=== PATIENT | female | born 1960 | race African-American/Black ===

== ENCOUNTER 2021-11-16 10:06 | Emergency (ER) | payer OTHER ==
--- OUTSIDE RECORDS SUMMARY | 2021-11-16 10:13 | XMS REPORT | Continuity of Care Document ---
:1960 Author Organization [facility] t Address [address] [place] [address] Care Team Providers Name Role Phone Yomaira Victor Primary Care Physician Nilam Attending Clinician Unavailable Nilam Attending Clinician Unavailable ELADIA, K.H. Attending Clinician Unavailable Yomaira Victor Attending Clinician Yomaira KHAN Attending Clinician Unavailable Eladia ARANGO, K.H. Attending Clinician Doctor Unassigned, Name Attending Clinician Unavailable Problems Condition Condition Condition Status Onset Resolution Last Treating Co mments Source Name Details Category Date Date Treatment Clinician Date Elevated Elevated Disease Active Unive rs blood blood 4- ity of pressure pressure 00:00: [place] reading reading 00 Medical without without Branch diagnosis diagnosis of of hypertensi hypertensi on on BMI BMI Disease Active Univers 28.0-28.9, 28.0-28.9, 4-09 it y of adult adult 00:00: [address] Well woman Well woman Disease Active U nivers exam exam 7-27 ity of 00:00: [place] 00 Medical Branch Surgical Surgical Disease Active Unive rs menopause menopause 2-15 ity of 00:00: [place] 00 Medical Branch H/O total H/O total Disease Active Overview: Univers hysterecto hysterecto 2-15 Cervix it y of my with my with 00:00: removed [place] removal of removal of 00 Me dical both tubes both tubes Br anch and and ovaries ovaries Obesity Obesity Disease Active Overview: Univ ers 2-15 Formattin ity of 00:00: g of this [place] 00 note Medical might be Branch different from the original. 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 III) 00 [facility] namita Branch FH: breast FH: breast Disease Active U nivers cancer in cancer in 1-13 ity of first first 00:00: [place] degree degree 00 Medical relative relative Branch HSIL (high HSIL (high Disease Resolve 2014-08-17 2014-08-18 Univers grade grade d 1-21 00:00:00 00:14:19 ity of squamous squamous 00:00: [place] intraepith intraepith 00 Me dical elial elial Branch lesion) on lesion) on Pap smear Pap smear of cervix of cervix Positive Positive Disease Resolve 2014-08-17 2014-08-18 Univers HPV 2014 HPV 2014 d 1-17 00:00:00 00:14:54 it y of 00:00: [place] 00 Medical Branch History of History of Disease Resolve 2014-08-17 2015-04-04 Univers anemia of anemia of d 1-13 00:00:00 00:03:19 ity of chronic chronic 00:00: [place] disease disease 00 Medical Branch Hx of Hx of Disease Resolve 2013-08-14 2013-08-14 Univers abnormal abnormal d 07-15 00:00:00 21:57:22 it y of Pap smear Pap smear 00:[place] Encounter Encounter Disease Resolve 2013-08-14 2015-04-04 Univers for for d 07-15 00:00:00 00:03:22 ity of routine routine 00:00: [place] gynecologi gynecologi 00 Me dical [facility] Branch examinatio examinatio n n Allergies, Adverse Reactions, Alerts Allergy Allergy Status Severity Reaction(s) Onset Inactive Treating Comm ents Source Name Type Date Date Clinician IODINE DRUG Active Rash Univers INGREDI 07-15 ity of 00:00: [place] 00 [facility] Iodine Propensi Active Rash Pt states Unive rs ty to 07-15 allergic ity of adverse 00:00: to the [place] reaction 00 dye that Medica l s is given Branch for CAT scans Social History Social Habit Start Date Stop Date Quantity Comments Source History of Cigarette Smoker Universi ty of tobacco use [facility] Exposure to Not sure [facility] SARS-CoV-2 [facility] (event) [place] Tobacco use and 2020-11-17 2020-11-17 Never used Universit y of exposure 00:00:00 00:00:00 [facility] Alcohol intake 2020-11-17 2020-11-17 Current University of 00:00:00 00:00:00 non-drinker of [facility] alcohol (finding) Branch Tobacco Comment 2017-01-26 2017-01-26 half a pack/ per Uni versity of 00:00:00 00:00:00 day ( on and off [facility] ) Branch Sex [birth year] At [birth year] Universit y of 00:00:00 00:00:00 [facility] Smoking Status Start Date Stop Date Source Current every day 2020-11-17 00:00:00 [facility] smoker Medical Branch Former smoker 2019-07-05 00:00:00 2019-07-05 00:00:00 Universi ty of [facility] Medications Ordered Filled Start Stop Current Ordering Indication Dosage Frequency Signature Comments Components Source Medication Medication Date Date Medication? Clinician (SIG) Name Name pravastatin 2020- No Take by U nivers 20 mg 5-18 05-18 mouth at ity of tablet 20:44: 00:00 bedtime. [place] 32 :00 Medical Branch pravastatin 2020- No Take by U nivers 20 mg 5-18 05-18 mouth at ity of tablet 20:44: 00:00 bedtime. [place] 32 :00 Medical Branch MULTIVIT-IL 2020- No Take by U nivers NERALS/FERR 5-18 05-18 mouth. ity o f OUS FUM 19:46: 00:00 [place] (MULTI 30 :00 Medical VITAMIN Branch ORAL) MULTIVIT-IL 2020- No Take by U nivers NERALS/FERR 5-18 05-18 mouth. ity o f OUS FUM 19:46: 00:00 [place] (MULTI 30 :00 Medical VITAMIN Branch ORAL) DOCOSAHEXAN 2020- No Take by U nivers OIC 5-18 05-18 mouth. ity of ACID/EPA 19:46: 00:00 [place] (FISH OIL 23 :00 Medical ORAL) Branch DOCOSAHEXAN 2020- No Take by U nivers OIC 5-18 05-18 mouth. ity of ACID/EPA 19:46: 00:00 [place] (FISH OIL 23 :00 Medical ORAL) Branch pravastatin Yes Take by Un rebekah 20 mg 4-09 mouth at ity of tablet 15:46: bedtime. [address] pravastatin 0 Yes Take by Un rebekah 20 mg 4-09 mouth at ity of tablet 15:46: bedtime. [address] pravastatin 0 Yes Take by Un rebekah 20 mg 4-09 mouth at ity of tablet 15:46: bedtime. [address] pravastatin 0 Yes Take by Un rebekah 20 mg 4-09 mouth at ity of tablet 15:46: bedtime. [address] pravastatin 0 Yes Take by Un rebekah 20 mg 4-09 mouth at ity of tablet 15:46: bedtime. [address] pravastatin 0 Yes Take by Un rebekah 20 mg 4-09 mouth at ity of tablet 15:46: bedtime. [address] pravastatin 2020-0 Yes Take by Un rebekah 20 mg 4-09 mouth at ity of tablet 15:46: bedtime. [address] pravastatin 2020-0 Yes Take by Un rebekah 20 mg 4-09 mouth at ity of tablet 15:46: bedtime. [address] pravastatin 2020-0 Yes Take by Un rebekah 20 mg 4-09 mouth at ity of tablet 15:46: bedtime. [address] pravastatin 2020-0 Yes Take by Un rebekah 20 mg 4-09 mouth at ity of tablet 15:46: bedtime. [address] pravastatin 2020-0 Yes Take by Un rebekah 20 mg 4-09 mouth at ity of tablet 15:46: bedtime. [address] 2018-07 Yes Take by Un rebekah NERALS/FERR 1-11 mouth. ity of OUS FUM 22:11: [place] ([facility] 26 Medical VITAMIN Branch ORAL) DOCOSAHEXAN 2018-07 Yes Take by Un rebekah OIC 1-11 mouth. ity of ACID/EPA 22:11: [place] (FISH OIL 26 Medical ORAL) [facility] 2018-07 Yes Take by Un rebekah NERALS/FERR 1-11 mouth. ity of OUS FUM 22:11: [place] ([facility] 26 Medical VITAMIN Branch ORAL) DOCOSAHEXAN 2018-07 Yes Take by Un rebekah OIC 1-11 mouth. ity of ACID/EPA 22:11: [place] (FISH OIL 26 Medical ORAL) [facility] 2018-07 Yes Take by Un rebekah NERALS/FERR 1-11 mouth. ity of OUS FUM 22:11: [place] (MULTI 26 Medical VITAMIN Branch ORAL) DOCOSAHEXAN 2018- Yes Take by Un rebekah OIC 1-11 mouth. ity of ACID/EPA 22:11: [place] (FISH OIL 26 Medical ORAL) [facility] 2018-07 Yes Take by Un rebekah NERALS/FERR 1-11 mouth. ity of OUS FUM 22:11: [place] ([facility] 26 Medical VITAMIN Branch ORAL) DOCOSAHEXAN 2018-07 Yes Take by Un rebekah OIC 1-11 mouth. ity of ACID/EPA 22:11: [place] (FISH OIL 26 Medical ORAL) [facility] 2018-07 Yes Take by Un rebekah NERALS/FERR 1-11 mouth. ity of OUS FUM 22:11: [place] (MULTI 26 Medical VITAMIN Branch ORAL) DOCOSAHEXAN 2018-07 Yes Take by Un rebekah OIC 1-11 mouth. ity of ACID/EPA 22:11: [place] (FISH OIL 26 Medical ORAL) [facility] 2018-07 Yes Take by Un rebekah NERALS/FERR 1-11 mouth. ity of OUS FUM 22:11: [place] (MULTI 26 Medical VITAMIN Branch ORAL) DOCOSAHEXAN 2018-07 Yes Take by Un rebekah OIC 1-11 mouth. ity of ACID/EPA 22:11: [place] (FISH OIL 26 Medical ORAL) [place] pravastatin 2018-07 Yes Take by Un rebekah 20 mg 1-11 mouth at ity of tablet 22:11: bedtime. [place] [address] Medical [facility] 2018-07 Yes Take by Un rebekah NERALS/FERR 1-11 mouth. ity of OUS FUM 22:11: [place] (MULTI 26 Medical VITAMIN Branch ORAL) DOCOSAHEXAN 2018-07 Yes Take by Un rebekah OIC 1-11 mouth. ity of ACID/EPA 22:11: [place] (FISH OIL 26 Medical ORAL) [facility] 2018-07 Yes Take by Un rebekah NERALS/FERR 1-11 mouth. ity of OUS FUM 22:11: [place] (MULTI 26 Medical VITAMIN Branch ORAL) DOCOSAHEXAN 2018-07 Yes Take by Un rebekah OIC 1-11 mouth. ity of ACID/EPA 22:11: [place] (FISH OIL 26 Medical ORAL) [facility] 2018-07 Yes Take by Un rebekah NERALS/FERR 1-11 mouth. ity of OUS FUM 22:11: [place] (MULTI 26 Medical VITAMIN Branch ORAL) DOCOSAHEXAN 2018-07 Yes Take by Un rebekah OIC 1-11 mouth. ity of ACID/EPA 22:11: [place] (FISH OIL 26 Medical ORAL) [facility] 2018-07 Yes Take by Un rebekah NERALS/FERR 1-11 mouth. ity of OUS FUM 22:11: [place] (MULTI 26 Medical VITAMIN Branch ORAL) DOCOSAHEXAN 2018-07 Yes Take by Un rebekah OIC 1-11 mouth. ity of ACID/EPA 22:11: [place] (FISH OIL 26 Medical ORAL) Branch MULTIVIT-IL 2018-07 Yes Take by Un rebekah NERALS/FERR 1-11 mouth. ity of OUS FUM 22:11: [place] (MULTI 26 Medical VITAMIN Branch ORAL) DOCOSAHEXAN 2018- Yes Take by Un rebekah OIC 1-11 mouth. ity of ACID/EPA 22:11: [place] (FISH OIL 26 Medical ORAL) Branch MULTIVIT-IL 2018-07 Yes Take by Un rebekah NERALS/FERR 1-11 mouth. ity of OUS FUM 22:11: [place] (MULTI 26 Medical VITAMIN Branch ORAL) DOCOSAHEXAN 2018- Yes Take by Un rebekah OIC 1-11 mouth. ity of ACID/EPA 22:11: [place] (FISH OIL 26 Medical ORAL) [place] No known No [facility] No known No Univers medications ity [facility] No known No [facility] known No [facility] Immunizations Ordered Filled Immunization Date Status Comments Sour e Immunization Name Name Td 2009-05-15 Completed University of 00:00:00 [facility] Td 2009-05-15 Completed University of 00:00:00 [facility] Td 2009-05-15 Completed University of 00:00:00 [facility] Td 2009-05-15 Completed University of 00:00:00 [facility] Td 2009-05-15 Completed University of 00:00:00 [facility] Td 2009-05-15 Completed University of 00:00:00 [facility] Td 2009-05-15 Completed University of 00:00:00 [facility] Td 2009-05-15 Completed University of 00:00:00 [facility] Td 2009-05-15 Completed University of 00:00:00 [facility] Td 2009-05-15 Completed University of 00:00:00 [facility] Td 2009-05-15 Completed University of 00:00:00 [facility] Td 2009-05-15 Completed University of 00:00:00 [facility] Td 2009-05-15 Completed University of 00:00:00 [facility] Td 2009-05-15 Completed University of 00:00:00 [facility] Td 2009-05-15 Completed University of 00:00:00 [facility] Td 2009-05-15 Completed University of 00:00:00 [facility] Td 2009-05-15 Completed University of 00:00:00 [facility] Td 2009-05-15 Completed University of 00:00:00 [facility] Vital Signs Vital Name Observation Time Observation Value Comments Source Systolic blood 2020-11-17 19:45:00 114 mm[Hg] Univer sity of pressure [facility] Diastolic blood 2020-11-17 19:45:00 79 mm[Hg] Unive rsity of [facility] Heart rate 2020-11-17 19:45:00 83 /min Universi ty of [facility] Respiratory rate 2020-11-17 19:45:00 19 /min [facility] [place] [place] [facility] Body height 2020-11-17 19:45:00 160 cm Universi ty of [facility] Body weight 2020-11-17 19:45:00 72.122 kg Universi ty [facility] BMI 2020-11-17 19:45:00 28.17 kg/m2 Universi ty [facility] Oxygen saturation in 2020-11-17 19:45:00 93 /min [facility] Arterial blood by [facility] Pulse oximetry Branch Systolic blood 2020-10-09 15:32:00 144 mm[Hg] Univer sity of [facility] Diastolic blood 2020-10-09 15:32:00 90 mm[Hg] Unive rsity of [facility] Heart rate 2020-10-09 15:31:00 68 /min Universi ty [facility] Body temperature 2020-10-09 15:31:[address] [facility] [place] [place] [facility] Respiratory rate 2020-10-09 15:31:00 16 /min [facility] [place] [facility] Body height 2020-10-09 15:31:00 160 cm Universi ty of [facility] Body weight 2020-10-09 15:31:00 72.53 kg Universi ty [facility] BMI 2020-10-09 15:31:00 28.33 kg/m2 Universi ty [facility] Procedures Procedure Date / Time Performing Clinician Source Performed BI ULTRASOUND BREAST 2020-12-11 14:41:20 Kendall Khan [facility] Branch BI DIAGNOSTIC 2020-12-11 14:08:00 Kendall Khan [facility] TOMOSYNTHESIS LEFT Medical Bran h BCCS-RELATED 2020-11-11 05:01:00 Doctor Unassigned, No [facility] [place] DOCUMENTATION Name Medical Branch REFERRAL- 2020-10-21 05:01:00 Doctor Unassigned, No [facility] [place] REQUEST/RESPONSE Name Medical Branch CONSENT/REFUSAL FOR 2020-10-09 14:58:26 Doctor Unassigned, No Un iversity of [place] DIAGNOSIS AND TREATMENT Name Medical Branch Plan of Care Planned Activity Planned Date Details Comments Source Future Scheduled 2021-11-02 Screening for University of Test 00:00:00 malignant neoplasm [place] Med ical of breast Branch (procedure) [code = 867393943] Future Scheduled 2021-11-02 Screening for University of Test 00:00:00 malignant neoplasm [place] Med ical of breast Branch (procedure) [code = 058827923] Future Scheduled 2021-10-09 Depression screening Uni versity of Test 00:00:00 (procedure) [code = [place] Me dical 769088666] Branch Future Scheduled 2021-10-09 Depression screening Uni versity of Test 00:00:00 (procedure) [code = [place] Me dical 249751810] Branch Future Scheduled 2021-03-03 INFLUENZA VACCINE Univer sity of Test 00:00:00 (Season Ended) [code [place] M edical = INFLUENZA VACCINE Branch (Season Ended)] Future Scheduled 2021-03-03 INFLUENZA VACCINE Univer sity of Test 00:00:00 (Season Ended) [code [place] M edical = INFLUENZA VACCINE Branch (Season Ended)] Diagnostic Test 2020-11-05 BI ULTRASOUND BREAST Expected: Univ ersity of Pending 00:00:00 COMPLETE LEFT [code 11/05/2020, [place] Me dical = 00875] Expires: Branch 01/05/2022 Diagnostic Test 2020-11-05 BI DIAGNOSTIC Expected: University of Pending 00:00:00 TOMOSYNTHESIS LEFT 11/05/2020, [place] Med ical [code = 87298] Expires: Branch 01/05/2022 Diagnostic Test 2020-11-05 BI ULTRASOUND BREAST Expected: Univ ersity of Pending 00:00:00 COMPLETE LEFT [code 11/05/2020, [place] Me dical = 88381] Expires: Branch 01/05/2022 Diagnostic Test 2020-11-05 BI DIAGNOSTIC Expected: University of Pending 00:00:00 TOMOSYNTHESIS LEFT 11/05/2020, [place] Med ical [code = 92315] Expires: Branch 01/05/2022 Future Scheduled 2020-01-27 Screening for University of Test 00:00:00 malignant neoplasm [place] Med ical of cervix Branch (procedure) [code = 067519036] Future Scheduled 2020-01-27 Screening for University of Test 00:00:00 malignant neoplasm [place] Med ical of cervix Branch (procedure) [code = 952352563] Future Scheduled 2015 Screening for University of Test 00:00:00 malignant neoplasm [place] Med ical of lung (procedure) Branch [code = 259080332] Future Scheduled 2015 Screening for University of Test 00:00:00 malignant neoplasm [place] Med ical of lung (procedure) Branch [code = 448139225] Future Scheduled 2010 Screening for occult Uni versity of Test 00:00:00 blood in feces [facility] (procedure) [code = Branch 060298601] Future Scheduled 2010 Stool DNA-based Universi ty of Test 00:00:00 colorectal cancer [facility] screening Branch (procedure) [code = 810124870018575] Future Scheduled 2010 Flexible fiberoptic Univ ersity of Test 00:00:00 sigmoidoscopy [facility] (procedure) [code = Branch 30707407] Future Scheduled 2010 Screening for University of Test 00:00:00 malignant neoplasm [place] Med ical of colon (procedure) Branch [code = 976642648] Future Scheduled 2010 Screening for University of Test 00:00:00 malignant neoplasm [place] Med ical of colon (procedure) Branch [code = 164260504] Future Scheduled 2010 Zoster Recombinant Unive rsity of Test 00:00:00 Vaccine (SHINGRIX) [place] Med ical (1 of 2) [code = Branch Zoster Recombinant Vaccine (SHINGRIX) (1 of 2)] Future Scheduled 2010 Screening for occult Uni versity of Test 00:00:00 blood in feces [facility] (procedure) [code = Branch 227408016] Future Scheduled 2010 Stool DNA-based Universi ty of Test 00:00:00 colorectal cancer [facility] screening Branch (procedure) [code = 310691874783380] Future Scheduled 2010 Flexible fiberoptic Univ ersity of Test 00:00:00 sigmoidoscopy [facility] (procedure) [code = Branch 81234523] Future Scheduled 2010 Screening for University of Test 00:00:00 malignant neoplasm [place] Med ical of colon (procedure) Branch [code = 391761855] Future Scheduled 2010 Screening for University of Test 00:00:00 malignant neoplasm [place] Med ical of colon (procedure) Branch [code = 117733212] Future Scheduled 2010 Zoster Recombinant Unive rsity of Test 00:00:00 Vaccine (SHINGRIX) [place] Med ical (1 of 2) [code = Branch Zoster Recombinant Vaccine (SHINGRIX) (1 of 2)] Future Scheduled 1979 DTaP,Tdap,and Td Univers ity of Test 00:00:00 Vaccines (1 - Tdap) [facility] dical [code = Branch DTaP,Tdap,and Td Vaccines (1 - Tdap)] Future Scheduled 1979 DTaP,Tdap,and Td Univers ity of Test 00:00:00 Vaccines (1 - Tdap) [facility] dical [code = Branch DTaP,Tdap,and Td Vaccines (1 - Tdap)] Future Scheduled 1978 Hepatitis C University of Test 00:00:00 screening [place] [facility] (procedure) [code = Branch 130092460] Future Scheduled 1978 Hepatitis C University of Test 00:00:00 screening [facility] (procedure) [code = Branch 450698028] Future Scheduled 1976 SARS-CoV-2 University of Test 00:00:00 (COVID-19) Vaccine [place] ical (1) [code = Branch SARS-CoV-2 (COVID-19) Vaccine (1)] Future Scheduled 1976 SARS-CoV-2 University of Test 00:00:00 (COVID-19) Vaccine [place] [facility] ical (1) [code = Branch SARS-CoV-2 (COVID-19) Vaccine (1)] Future Scheduled 1966 PNEUMOCOCCAL 0-64 Univer sity of Test 00:00:00 YEARS COMBINED [place] [facility] SERIES (1 of 1 - Branch PPSV23) [code = PNEUMOCOCCAL 0-64 YEARS COMBINED SERIES (1 of 1 - PPSV23)] Future Scheduled 1966 PNEUMOCOCCAL 0-64 Univer sity of Test 00:00:00 YEARS COMBINED [place] Medical SERIES (1 of 1 - Branch PPSV23) [code = PNEUMOCOCCAL 0-64 YEARS COMBINED SERIES (1 of 1 - PPSV23)] Encounters Start End Encounter Admission Attending Care Care Encounter Source Date/Time Date/Time Type Type Clinicians Facility Department ID 2021-08-24 Outpatient Demarco, STLMLC STLMLC [id number] Common 15:14:01 Avnee [facility] 2021-08-04 Outpatient Demarco, STLMLC STLMLC [id number] Common 14:02:02 Avnee [facility] 2021-07-28 Outpatient Demarco, STLMLC STLMLC [id number] Common 15:58:01 Avnee [facility] 2021-07-28 Outpatient Demarco, STLMLC STLMLC [id number] Common 14:38:32 Avnee [facility] 2021-07-28 Outpatient STLMLC STLMLC [id number] Common 14:36:48 [facility] 2021-07-28 Outpatient Demarco, STLMLC STLMLC [id number] Common 14:36:27 Terra [facility] 2021-07-28 Outpatient STLMLC STLMLC [id number] Common 14:35:28 [facility] 2021-10-08 2021-10-08 ambulatory STLMLC STLMLC [id number] Common 00:00:00 00:00:00 [facility] 2021-08-18 2021-08-18 ambulatory STLMLC STLMLC [id number] Common 00:00:00 00:00:00 [facility] 2021-08-16 2021-08-16 ambulatory STLMLC STLMLC [id number] Common 00:00:00 00:00:00 [facility] 2021-07-28 2021-07-28 ambulatory STLMLC STLMLC [id number] Common 00:00:00 00:00:00 [facility] 2021-07-23 2021-07-23 ambulatory STLMLC STLMLC [id number] Common 00:00:00 00:00:00 [facility] 2021-07-23 2021-07-23 ambulatory STLMLC STLMLC [id number] Common 00:00:00 00:00:00 [facility] 2021-07-16 2021-07-16 ambulatory STLMLC STLMLC [id number] Common 00:00:00 00:00:00 [facility] 2021-07-16 2021-07-16 ambulatory STLMLC STLMLC [id number] Common 00:00:00 00:00:00 [facility] 2021-05-20 2021-05-20 Outpatient Yomaira MONTILLA [facility] [id number] Univers 09:00:00 09:00:00 SENDIL [id number] ity of [facility] 2020-12-11 2020-12-11 [facility] [id number] Univers 08:11:57 23:59:00 Encounter Roshunda R SPECIALTY [id number] ity [id number] [id number] [address] 2020-12-11 2020-12-11 [facility] [id number] Univers 08:11:40 23:59:00 Encounter Roshunda R SPECIALTY [id number] it[id number] [id number] [address] 2020-12-11 2020-12-11 [id number] Univers 11:30:00 11:30:00 KENDALL [id number] ity o f [facility] 2020-12-11 2020-12-11 Outpatient R [place] [facility] [id number] Univers 00:00:00 00:00:00 KENDALL ity o f [facility] 2020-12-11 2020-12-11 Outpatient R [place] [facility] [id number] Univers 00:00:00 00:00:00 YEHUDAA ity o f [facility] 2020-12-08 2020-12-08 [facility] [id number] Univers 14:00:00 14:00:00 SENDIL [id number] ity [facility] 2020-11-18 2020-11-18 [facility] [id number] Univers 00:00:00 00:00:00 Sendil Christy Pagan [id number] [place]y [id number] [phone] Sc dical leighton [address] [place] [address] 2020-11-17 2020-11-17 [facility] [id number] Univers 14:22:15 16:55:50 Visit Sendarleth Pagan [id number] [place] [id number] [id number] Sc dic[address] 2020-11-17 2020-11-17 [facility] [id number] Univers 14:30:00 14:30:00 SENDIL [id number] ity [facility] 2020-11-17 2020-11-17 [facility]patient [facility] [id number] Univers 14:30:00 14:30:00 SENDIL ity [facility] 2020-11-17 2020-11-17 [facility] [id number] Univers 00:00:00 00:00:00 (Out) Sendil Christy Pagan [id number] ity of [id number] [phone] Sc dicct nal [address] [place] [address] 2020-11-11 2020-11-11 Orders Doctor DINAH [id number] Univers 00:00:00 00:00:00 Only Unassigned, DANETTE [id number] ity of [facility] [id number] Andrey as [phone] [address] 2020-11-05 2020-11-05 Telephone [facility] [id number] Univers 00:00:00 00:00:00 Kendall Burnette METAL FILER [id number] ity of REGIONAL [id number] Andrey as MATERNAL [phone] Med ical & CHILD [address] [place] [address] 2020-11-02 2020-11-02 [facility] [id number] Univers 06:53:24 23:59:00 Encounter Kendall Burnette SPECIALTY [id number] [id number] [phone] [place] [id number] [facility] 2020-11-02 2020-11-02 [facility]patient [facility] [id number] Univers 10:00:00 10:00:00 KENDALL [id number] henry o [facility] 2020-11-02 2020-11-02 Outpatient [facility] [id number] Univers 00:00:00 00:00:00 KENDALL figueroa o [facility] 2020-10-21 2020-10-21 Orders Doctor DINAH [id number] Univers 00:00:00 00:00:00 Only Unassigned, DANETTE [id number] ity of [facility] [id number] Andrey as [phone] [address] 2020-10-14 2020-10-14 [facility]patient [facility] [id number] Univers 09:40:00 09:40:00 KENDALL [id number] ity o [facility] 2020-10-09 2020-10-09 Office [facility] [id number] Univers 10:17:45 11:21:59 Visit Kendall Burnette METAL FILER [id number] ity of [id number] Andrey as MATERNAL [phone] [facility] ica & [address] 2020-10-09 2020-10-09 Outpatient [facility] [id number] Univers 10:00:00 10:00:00 KENDALL [id number] ity o [facility] 2020-10-09 2020-10-09 Outpatient [facility] [id number] Univers 09:30:00 09:30:00 KAINREBECCA horner [facility] 2020-10-09 2020-10-09 Orders Doctor DINAH [id number] Univers 00:00:00 00:00:00 Only Unassigned, DANETTE [id number] ity of [facility] [place] [id number] Andrey as [phone] [address] 2019-07-05 2019-07-05 Outpatient [facility] [id number] Univers 06:35:38 23:59:00 YEHUDABarrington alinakristin siri [facility] Results Test Description Test Time Test Comments Results Result [facility] e Comments BI ULTRASOUND 2020-12-01 Examination:BI Univers ity of BREAST COMPLETE 1 DIAGNOSTIC [facility] LEFT 14:52:49 TOMOSYNTHESIS [place] LEFTBI ULTRASOUND BREAST COMPLETE LEFT History:Patient is 60 year old and is seen for: ?Call back. Computer-aided detection (CAD) utilized. Comparisons: 11/02/2020 BI SCREENING TOMOSYNTHESIS BILATERAL, 08/01/2019 BI DIAGNOSTIC TOMOSYNTHESIS LEFT, 07/05/2019 BI SCREENING TOMOSYNTHESIS BILATERAL, 03/15/2017 DIGITAL MAMMOGRAM SCREENING [place], 01/18/2016 DIGITAL MAMMOGRAM SCREENING [place], 08/06/2013 DIGITAL MAMMOGRAM, SCREENING, and 03/03/2010 DIGITAL MAMMOGRAM, SCREENING Findings:BI DIAGNOSTIC TOMOSYNTHESIS LEFTThe left breast has scattered areas of fibroglandular density. There is no evidence of suspicious masses, calcifications, or other abnormal findings in the left breast. The mammographic asymmetry noted at recent screening mammography did not persist with additional imaging and is consistent with superimposition of normal breast tissue. BI ULTRASOUND BREAST COMPLETE LEFTSurvey ultrasound was performed.There is no evidence of suspicious masses or other abnormal findings in the left breast.Ultrasound of the axilla demonstrates morphologically normal lymph nodes. Impression:No evidence of malignancy. Recommendation:Mable warren mammographic follow-up - Left BI-RADS Category: Left 2 - Benign BI DIAGNOSTIC 2020-12-01 Examination:BI Univers ity of TOMOSYNTHESIS LEFT 1 DIAGNOSTIC [facility] 14:52:44 TOMOSYNTHESIS [place] LEFTBI ULTRASOUND BREAST COMPLETE LEFT History:Patient is 60 year old and is seen for: ?Call back. Computer-aided detection (CAD) utilized. Comparisons: 11/02/2020 BI SCREENING TOMOSYNTHESIS BILATERAL, 08/01/2019 BI DIAGNOSTIC TOMOSYNTHESIS LEFT, 07/05/2019 BI SCREENING TOMOSYNTHESIS BILATERAL, 03/15/2017 DIGITAL MAMMOGRAM SCREENING VAN, 01/18/2016 DIGITAL MAMMOGRAM SCREENING VAN, 08/06/2013 DIGITAL MAMMOGRAM, SCREENING, and 03/03/2010 DIGITAL MAMMOGRAM, SCREENING Findings:BI DIAGNOSTIC TOMOSYNTHESIS LEFTThe left breast has scattered areas of fibroglandular density. There is no evidence of suspicious masses, calcifications, or other abnormal findings in the left breast. The mammographic asymmetry noted at recent screening mammography did not persist with additional imaging and is consistent with superimposition of normal breast tissue. BI ULTRASOUND BREAST COMPLETE LEFTSurvey ultrasound was performed.There is no evidence of suspicious masses or other abnormal findings in the left breast.Ultrasound of the axilla demonstrates morphologically normal lymph nodes. Impression:No evidence of malignancy. Recommendation:Mable warren mammographic follow-up - Left BI-RADS Category: Left 2 - Benign
[2021-11-16 10:54] LABS: Absolute Lymphocytes (CBC) 2.1 K/uL (0.7-4.9); Hematocrit 37.8 % (36.0-45.0); MPV 9.8 fL (7.6-11.3)
[2021-11-16 11:11] LABS: Potassium 3.5 mmol/L (3.5-5.1); Troponin High Sensitivity 3.8 pg/mL (<58.9)
[2021-11-16] MEDS ORDERED: ONDANSETRON 4 MG/2 ML VIAL ONE (11:14)
[2021-11-16] MEDS ORDERED: MORPHINE 4 MG/ML SYR ONE (11:14)
--- NOTE | 2021-11-16 11:28 | RAD REPORT ---
EXAM DESCRIPTION: RAD - Chest Single View - 11/16/2021 10:55 am CLINICAL HISTORY: CHEST PAINradiating to the left shoulder COMPARISON: Portable August 2013 TECHNIQUE: AP portable chest image was obtained 11/16/2021 10:55 am . FINDINGS: No focal mass or infiltrate in the lung caro. No significant interstitial infiltrate or edema seen. Under penetrated technique and more shallow inspiration accentuates the interstitial messi bina. Heart and vasculature are normal. No measurable pleural effusion and no pneumothorax. No acute bony abnormality seen. No acute aortic findings suspected. IMPRESSION: No acute cardiopulmonary process. No significant change from comparison study.
[2021-11-16] MEDS ORDERED: KETOROLAC 30 MG/ML INJ ONE (14:36)
--- NOTE | 2021-11-16 15:34 | EDPHYS ---
Physician Documentation [facility] Name: Leela Olivier Age: 61 yrs Sex: Female : 1960 Arrival Date: 11/16/2021 Time: 10:09 Bed 9 Private MD: ED Physician Meng Morris HPI: 11/16 10:22 This 61 yrs old Black Female presents to ER via Ambulatory with complaints of Chest pm1 Pain. 10:22 The patient or guardian reports chest pain that is located primarily in the anterior pm1 aspect of left upper chest. Onset: last night. The pain does not radiate. Associated signs and symptoms: Pertinent positives: headache, Pertinent negatives: shortness of breath. The chest pain is described as sharp. Duration: The patient or guardian reports a single episode, that is still ongoing. Modifying factors: the symptoms are aggravated by cough, deep breath, palpation of area, Lying on left shoulder. Severity of pain: in the emergency department the pain is unchanged. The patient has not experienced similar symptoms in the past. The patient has not recently seen a physician. Historical: - Allergies: 10:15 Iodine; ww - PMHx: 10:15 Hypercholesterolemia; ww - PSHx: 10:15 Total abdominal hysterectomy; ww - Immunization history:: Adult Immunizations up to date. - Social history:: Smoking status: Patient reports the use of cigarette tobacco products, smokes one-half pack cigarettes per day. ROS: 10:22 Constitutional: Negative for fever, chills, and weight loss. pm1 10:22 Respiratory: Negative for shortness of breath, cough, wheezing, and pleuritic chest pain, Abdomen/GI: Negative for abdominal pain, nausea, vomiting, diarrhea, and constipation, Back: Negative for injury and pain, MS/Extremity: Negative for injury and deformity, Skin: Negative for injury, rash, and discoloration. 10:22 Cardiovascular: Positive for chest pain, Negative for edema, palpitations. 10:22 Neuro: Positive for headache, Negative for dizziness, numbness, weakness. 10:22 All other systems are negative. Exam: 10:22 Constitutional: This is a well developed, well nourished patient who is awake, alert, pm1 and in no acute distress. Head/Face: Normocephalic, atraumatic. 10:22 Back: No spinal tenderness. No costovertebral tenderness. Full range of motion. Skin: Warm, dry with normal turgor. Normal color with no rashes, no lesions, and no evidence of cellulitis. MS/ Extremity: Pulses equal, no cyanosis. Neurovascular intact. Full, normal range of motion. 10:22 Chest/axilla: Inspection: no acute changes, Palpation: tenderness, that is moderate, of the anterior aspect of left upper chest, that totally reproduces the patient's complaints, Deep breathing and palpation of left shoulder reproduces patient's pain. 10:22 Cardiovascular: Exam negative for acute changes, Rate: normal, Rhythm: regular, Pulses: no pulse deficits are appreciated, Heart sounds: normal, normal S1and S2. 10:22 Respiratory: Exam negative for acute changes, respiratory distress, shortness of breath, Breath sounds: are clear throughout. 10:22 Abdomen/GI: Exam negative for acute changes, Inspection: abdomen appears normal, Palpation: abdomen is soft and non-tender, in all quadrants. 10:22 Neuro: Exam negative for acute changes, Orientation: is normal, Mentation: is normal, Motor: is normal, moves all fours. Vital Signs: 10:14 BP 132 / 87; Pulse 72; Resp 18; Pulse Ox 96% on R/A; Weight 68.04 kg; Height 5 ft. 3 ww in. (160.02 cm); Pain 5/10; 10:14 Body Mass Index 26.57 (68.04 kg, 160.02 cm) ww MDM: 10:24 Patient medically screened. pm1 15:06 Data reviewed: vital signs. Data interpreted: Pulse oximetry: on room air is 96 %. pm1 Interpretation: normal. 15:32 Counseling: I had a detailed discussion with the patient and/or guardian regarding: the pm1 historical points, exam findings, and any diagnostic results supporting the discharge/admit diagnosis, lab results, radiology results, the need for outpatient follow up, to return to the emergency department if symptoms worsen or persist or if there are any questions or concerns that arise at home. 11/16 10:22 Order name: Basic Metabolic Panel; Complete Time: 11:43 kj1 11/16 10:22 Order name: CBC with Diff; Complete Time: 11:43 kj1 11/16 10:22 Order name: Troponin HS; Complete Time: 11:43 kj1 11/16 10:22 Order name: XRAY Chest (1 view); Complete Time: 11:43 11/16 14:28 Order name: Troponin High Sensitivity; Complete Time: 15:06 pm1 11/16 10:22 Order name: EKG; Complete Time: 10:22 11/16 10:22 Order name: Cardiac monitoring; Complete Time: 11:41 11/16 10:22 Order name: EKG - Nurse/Tech; Complete Time: 11:34 11/16 10:22 Order name: IV Saline Lock; Complete Time: 11:41 11/16 10:22 Order name: Labs collected and sent; Complete Time: 11:41 11/16 10:22 Order name: O2 Per Protocol; Complete Time: 11:11/16 10:22 Order name: O2 Sat Monitoring; Complete Time: 11:41 kj Administered Medications: 13:05 Drug: morphine 4 mg Route: IVP; Site: right antecubital; iw 13:05 Drug: Zofran (Ondansetron) 4 mg Route: IVP; Site: right antecubital; iw 14:42 Drug: Ketorolac 30 mg Route: IVP; Site: right antecubital; iw Disposition Summary: 11/16/21 15:33 Discharge Ordered Location: Home pm1 Problem: new pm1 Symptoms: have improved pm1 Condition: Stable pm1 Diagnosis - Chest pain, unspecified pm1 Followup: pm1 - With: Emergency Department - When: As needed - Reason: Worsening of condition Followup: pm1 - With: Private Physician - When: 2 - 3 days - Reason: Recheck today's complaints, Continuance of care, Re-evaluation by your physician Discharge Instructions: - Discharge Summary Sheet pm1 - Nonspecific Chest Pain, Adult pm1 - Chest Wall Pain pm1 Forms: - Work release form pm1 - Medication Reconciliation Form pm1 - Thank You Letter pm1 - Antibiotic Education pm1 - Prescription Opioid Use pm1 Prescriptions: - Cyclobenzaprine 10 mg Oral Tablet - take 1 tablet by ORAL route every 8 hours As needed; 30 tablet; Refills: 0, pm1 Product Selection Permitted - Diclofenac Sodium 75 mg Oral Tablet Sustained Release - take 1 tablet by ORAL route 2 times per day; 30 tablet; Refills: 0, Product pm1 Selection Permitted Signatures: [facility] Prosper, Jonelle, RN RN iw Kevin Katz, COMMUNITY LIAISON COMMUNITY LIAISON pm1 Alyssa Brasher kj1 Ashley Caruso, RN RN ww
--- NOTE | 2021-11-16 15:34 | ER ---
Nurse's Notes [facility] Name: Leela Olivier Age: 61 yrs Sex: Female : 1960 Arrival Date: 11/16/2021 Time: 10:09 Bed 9 Private MD: Diagnosis: Chest pain, unspecified Presentation: 11/16 10:14 Chief complaint: Patient states: Chest pain that started last night that radiates to ww the left shoulder with a slight headache. Coronavirus screen: Client denies travel out of the [place] in the last 14 days. Ebola Screen: Patient denies travel to an Ebola-affected area in the 21 days before illness onset. Initial Sepsis Screen: Does the patient meet any 2 criteria? No. Patient's initial sepsis screen is negative. Does the patient have a suspected source of infection? No. Patient's initial sepsis screen is negative. Risk Assessment: Do you want to hurt yourself or someone else? Patient reports no desire to harm self or others. Onset of symptoms was November 15, 2021. 10:14 Method Of Arrival: Ambulatory ww 10:14 Acuity: BLANCA 3 ww Triage Assessment: 10:15 General: Appears comfortable, Behavior is calm, cooperative. Pain: Complains of pain in ww chest. Neuro: Level of Consciousness is awake, alert, obeys commands, Oriented to person, place, time, situation, Moves all extremities. Speech is normal. Cardiovascular: Patient's skin is warm and dry. Rhythm is regular. Respiratory: Airway is patent Respiratory effort is even, unlabored, Respiratory pattern is regular, symmetrical. Historical: - Allergies: 10:15 Iodine; ww - PMHx: 10:15 Hypercholesterolemia; ww - PSHx: 10:15 Total abdominal hysterectomy; ww - Immunization history:: Adult Immunizations up to date. - Social history:: Smoking status: Patient reports the use of cigarette tobacco products, smokes one-half pack cigarettes per day. Vital Signs: 10:14 BP 132 / 87; Pulse 72; Resp 18; Pulse Ox 96% on R/A; Weight 68.04 kg; Height 5 ft. 3 ww in. (160.02 cm); Pain 5/10; 10:14 Body Mass Index 26.57 (68.04 kg, 160.02 cm) ww ED Course: 10:09 Patient arrived in ED. mr 10:15 Triage completed. ww 10:15 Arm band placed on. ww 10:17 EKG done. ww 10:24 Kevin Katz NP is PHCP. pm1 10:24 Meng Morris MD is Attending Physician. pm1 10:56 XRAY Chest (1 view) In Process Unspecified. EDMS 11:12 Jonelle Cheng, RN is Primary Nurse. iw Administered Medications: 13:05 Drug: morphine 4 mg Route: IVP; Site: right antecubital; iw 13:05 Drug: Zofran (Ondansetron) 4 mg Route: IVP; Site: right antecubital; iw 14:42 Drug: Ketorolac 30 mg Route: IVP; Site: right antecubital; iw Outcome: 15:33 Discharge ordered by . pm1 15:47 Patient left the ED. iw Signatures: Dispatcher [employer] EDMD Kadi Ramos mr Jonelle Cheng RN RN iw Kevin Katz, CHARLES DIRECTOR EXECUTIVE COMMUNICATIONS pm1 Ashley Caruso RN RN
[2021-11-16 15:53] VITALS: BP 132/87; O2SAT 96
--- NOTE | 2021-11-18 07:45 | EKG ---
Test Date: 2021-11-16 Test Time: 10:14:39 Demurrage Agent: BRENT MEASUREMENT RESULTS: Intervals: Rate: 75 ND: 164 QRSD: 90 QT: 378 QTc: 422 [place]: P: 73 ND: 164 QRS: 49 T: 60 INTERPRETIVE STATEMENTS: Normal sinus rhythm with sinus arrhythmia RSR' or QR pattern in V1 suggests right ventricular conduction delay Nonspecific T wave abnormality Abnormal ECG Compared to ECG 09/11/2013 07:11:29 T-wave abnormality now present Electronically Signed On 11-18-21 07:37:59 CDT by Keo Nesbitt
== END 2021-11-16 15:47 | disposition home or self-care (01) ==
LOC: ER 10:06
DX: R07.9 Chest pain, unspecified (principal); E78.00 Pure hypercholesterolemia, unspecified; F17.210 Nicotine dependence, cigarettes, uncomplicated; Z91.048 Other nonmedicinal substance allergy status
CPT/HCPCS: 93005; 85025; 80048; 36415; 84484 ×2; 71045; J2405; 96374; 96375; 99283